=== PATIENT | female | born 1990 | race African-American/Black ===

== ENCOUNTER 2019-12-29 14:13 | Emergency (ER) | payer MEDICAID ==
[~2019-12-29] VITALS: Ht 170.2 cm; Wt 65.0 kg
[2019-12-29] MEDS ORDERED: KETOROLAC 30MG/ML VIAL IM ONE (15:00)
[2019-12-29 15:10] VITALS: BP 116/66
== END 2019-12-29 15:21 | disposition home or self-care (01) ==
LOC: ER 15:14
DX: M79.669 Pain in unspecified lower leg (principal)
CPT/HCPCS: 93005; 99283